=== PATIENT | female | born 1995 | race Caucasian/White ===

== ENCOUNTER 2018-04-08 10:54 | Emergency (ER) | payer MEDICAID ==
[~2018-04-08] VITALS: Ht 160 cm; Wt 63.0 kg
[2018-04-08 10:59] VITALS: BP_SYST 123
--- NOTE | 2018-04-08 11:04 | NUR ---
Pt placed to ER bed 3, to shashank, report given to JONATHAN Goodman.
--- NOTE | 2018-04-08 11:27 | NUR ---
Dr. Parish at bedside for evaluation
--- NOTE | 2018-04-08 11:30 | NUR ---
Pt c/o discomfort in left breast. States that she had "something there" that was treated and thinks it's coming back. [place] Dr. Parish at bedside. No redness noted.
[2018-04-08 11:42] VITALS: BP_SYST 123
--- NOTE | 2018-04-08 11:42 | NUR ---
Patient given written and verbal discharge instructions and verbalizes understanding. ER MD discussed with patient the results and treatment provided. Patient in stable condition. ID arm band removed. Rx of Keflex given. Patient educated on pain management and to follow up with PMD. Pain Scale 0/10. Opportunity for questions provided and answered.
== END 2018-04-08 11:42 | disposition home or self-care (01) ==
LOC: SED 10:54
DX: N61.0 Mastitis without abscess (principal); R03.0 Elevated blood-pressure reading, without diagnosis of hypertension
CPT/HCPCS: 99283